=== PATIENT | male | born 1950 | race Caucasian/White ===

== ENCOUNTER → 2016-12-14 | Outpatient (CLI) | payer BC ==
[~2016-12-14] MED LIST: ALLEGRA-D 24HR1 T24 PO; APRESOLINE 25MG25 MG PO; ASPIRIN E.C. 8181 MG PO; FLOVENT 110MCG7.9 GM IH; LIPITOR 10MG10 MG PO; LIPITOR20 MG PO; MULTI VITAMINS1 TAB PO; NASONEX SPRAY17 GM NS; NITROSTAT0.4 MG/TAB SL; PREDNISONE10 MG PO; PREDNISONE20 MG PO; PROAIR HFA0.09 MG/AC IH; THE MEDICINE S300 M1 PO
== END ==
LOC: COL.PUL 09:41
DX: J45.909 Unspecified asthma, uncomplicated (principal)
CPT/HCPCS: J7674

== ENCOUNTER 2018-05-06 13:26 | Outpatient (CLI) | payer BC ==
[~2018-05-06] VITALS: Ht 188 cm; Wt 112.8 kg
[2018-05-06 13:57] VITALS: BP 152/61; PULSE 71; TEMP 97.6
[2018-05-06] MEDS ORDERED: NUCALA100 MG SQ (14:07)
== END 2018-05-06 15:28 | disposition home or self-care (01) ==
LOC: EUO 13:26
DX: Z79.899 Other long term (current) drug therapy (principal)

== ENCOUNTER 2018-06-07 11:12 | Outpatient (CLI) | payer BC ==
[~2018-06-07] VITALS: Ht 188 cm; Wt 111.3 kg
[~2018-06-07 11:12] MED LIST changes: +NATURAL FISH1000 MG PO; +NUCALA100 MG SQ; -THE MEDICINE S300 M1 PO
[2018-06-07] MEDS ORDERED: ALLEGRA-D 24HR1 T24 PO (11:32)
[2018-06-07] MEDS ORDERED: SINGULAIR 110 MG/TAB PO (11:36)
[2018-06-07 11:37] VITALS: BP 132/69; PULSE 61; TEMP 98.1
[2018-06-07] MEDS ORDERED: SPIRIVA RE2.5 MCG/Ac IH (11:37)
[2018-06-07] MEDS ORDERED: 00186-0370-20 IH (11:37)
== END 2018-06-07 12:17 | disposition home or self-care (01) ==
LOC: EUO 11:12
DX: Z79.899 Other long term (current) drug therapy (principal)

== ENCOUNTER 2018-07-08 12:37 | Outpatient (CLI) | payer BC ==
[~2018-07-08] VITALS: Ht 188 cm; Wt 112.0 kg
[~2018-07-08 12:37] MED LIST changes: +00186-0370-20 IH; +SINGULAIR 110 MG/TAB PO; +SPIRIVA RE2.5 MCG/Ac IH
[2018-07-08 13:48] VITALS: BP 127/62; PULSE 73; TEMP 98.1
== END 2018-07-08 13:48 | disposition home or self-care (01) ==
LOC: EUO 12:37
DX: Z79.899 Other long term (current) drug therapy (principal)

== ENCOUNTER 2018-08-05 12:53 | Outpatient (CLI) | payer BC ==
[~2018-08-05] VITALS: Ht 188 cm; Wt 112.8 kg
[2018-08-05 13:43] VITALS: BP 135/65; PULSE 70; TEMP 98.5
== END 2018-08-05 13:44 | disposition home or self-care (01) ==
LOC: EUO 12:53
DX: Z79.899 Other long term (current) drug therapy (principal)

== ENCOUNTER 2018-09-02 10:37 | Outpatient (CLI) | payer BC ==
[~2018-09-02] VITALS: Ht 188 cm; Wt 112.0 kg
[2018-09-02 11:01] VITALS: BP 141/73; PULSE 57; TEMP 97.5
== END 2018-09-02 11:14 | disposition home or self-care (01) ==
LOC: EUO 10:37
DX: Z79.899 Other long term (current) drug therapy (principal)

== ENCOUNTER 2018-09-30 10:59 | Outpatient (CLI) | payer BC ==
[~2018-09-30] VITALS: Ht 188 cm; Wt 111.1 kg
[2018-09-30 12:01] VITALS: BP 127/70; PULSE 51; TEMP 97.6
== END 2018-09-30 12:07 | disposition home or self-care (01) ==
LOC: EUO 10:59
DX: Z79.899 Other long term (current) drug therapy (principal)

== ENCOUNTER 2018-10-31 11:33 | Outpatient (CLI) | payer BC ==
[~2018-10-31] VITALS: Ht 188 cm; Wt 108.0 kg
[2018-10-31 11:48] VITALS: BP 136/67; PULSE 58; TEMP 98.2
== END 2018-10-31 13:11 | disposition home or self-care (01) ==
LOC: EUO 11:33
DX: Z79.899 Other long term (current) drug therapy (principal)

== ENCOUNTER 2018-12-13 16:00 | Outpatient (RCR) | payer BC ==
[2018-11-28 11:15] VITALS: BP 139/64; PULSE 98; TEMP 98.3
--- NOTE | 2018-11-28 11:36 | NUR ---
Medication unavailable and not delivered by [facility]. Pharmacy contacted who confirms shipment was not sent. Call back number provided for shipping department for notification of new arrival date. Patient departs at this time and is agreeable to reschedule via phone with [facility] staff.
[~2018-12-13] VITALS: Ht 188 cm; Wt 109.9 kg
[2018-12-13 16:49] VITALS: BP 127/66; PULSE 55; TEMP 98.1
== END 2018-12-13 16:57 | disposition home or self-care (01) ==
LOC: EUO 16:00
DX: J45.40 Moderate persistent asthma, uncomplicated (principal); J30.9 Allergic rhinitis, unspecified; K21.9 Gastro-esophageal reflux disease without esophagitis; Z79.899 Other long term (current) drug therapy

== ENCOUNTER 2019-01-22 09:01 | Outpatient (CLI) | payer BC ==
[~2019-01-22] VITALS: Ht 188 cm; Wt 110.0 kg
[2019-01-22 09:20] VITALS: BP 140/64; PULSE 55; TEMP 98.2
== END 2019-01-22 14:00 ==
LOC: EUO 09:01
DX: J45.40 Moderate persistent asthma, uncomplicated (principal); Z79.899 Other long term (current) drug therapy

== ENCOUNTER 2019-02-19 11:02 | Outpatient (CLI) | payer BC ==
[~2019-02-19] VITALS: Ht 188 cm; Wt 109.0 kg
[2019-02-19 11:23] VITALS: BP 125/63; PULSE 54; TEMP 97.9
== END 2019-02-19 12:06 | disposition home or self-care (01) ==
LOC: EUO 11:02
DX: J45.40 Moderate persistent asthma, uncomplicated (principal); Z79.899 Other long term (current) drug therapy

== ENCOUNTER 2019-03-19 11:01 | Outpatient (CLI) | payer BC ==
[~2019-03-19] VITALS: Ht 188 cm; Wt 109.0 kg
[2019-03-19 11:25] VITALS: BP 133/65; PULSE 53; TEMP 98.1
== END 2019-03-19 13:53 | disposition home or self-care (01) ==
LOC: EUO 11:01
DX: J45.40 Moderate persistent asthma, uncomplicated (principal); Z79.899 Other long term (current) drug therapy

== ENCOUNTER 2019-04-16 10:55 | Outpatient (CLI) | payer BC ==
[~2019-04-16] VITALS: Ht 188 cm; Wt 111.8 kg
[2019-04-16 11:25] VITALS: BP 157/74; PULSE 63; TEMP 98
== END 2019-04-16 11:32 | disposition home or self-care (01) ==
LOC: EUO 10:55
DX: J45.40 Moderate persistent asthma, uncomplicated (principal)

== ENCOUNTER 2021-03-31 21:00 | Emergency (ER) | payer BC ==
[~2021-03-31] VITALS: Ht 182.9 cm; Wt 104.5 kg
[2021-03-31 22:49] LABS: BASO # 0.1 (0.0-0.2); BASO % 0.5 % (0.0-2.0); EOS % 0.2 % (0-4.0); GRAN # 12.4 (1.4-6.5); HEMATOCRIT 38.5 % (42.0-52.0); HEMOGLOBIN 12.9 g/dl (13.5-18.0); LYMPH # 1.2 (1.2-3.4); LYMPH % 8.1 % (20.0-51.0); MEAN CELL VOLUME 93 fl (80.0-100.0); MEAN CORPUSCULAR HEMOGLOBIN 31 pg (27.0-31.0); MEAN CORPUSCULAR HGB CONC 34 g/dl (33.0-37.0); MEAN PLATELET VOLUME 9.8 fl (7.4-10.4); MONO # 1.2 (0.1-0.6); MONO % 7.7 % (1.7-9.3); PLATELET COUNT 261 K/mm3 (130-400); RED BLOOD COUNT 4.15 M/mm3 (4.20-5.60); REDCELL DISTRIBUTION WIDTH-CV 12.7 % (11.5-14.5)
[2021-03-31 22:57] LABS: INR 1.2 (0.8-3.0); PROTHROMBIN TIME 13.1 SECONDS (9.7-12.8)
[2021-03-31 23:00] LABS: PARTIAL THROMBOPLASTIN TIME 31.1 SECONDS (26.0-37.0)
[2021-03-31 23:06] LABS: BILIRUBIN,TOTAL 0.4 mg/dL (0.2-1.2); CALCIUM 9.6 mg/dL (8.4-10.2); CREATININE, serum 1.72 mg/dL (0.72-1.25); POTASSIUM 4.4 mmol/L (3.5-4.5); TOTAL PROTEIN 7.1 gm/dL (6.2-8.1)
[2021-03-31] MEDS ORDERED: ELIQUIS 5MG PO (23:48)
[2021-04-01 00:26] VITALS: BP 148/65; PULSE 91; TEMP 98.8
== END 2021-04-01 00:26 | disposition home or self-care (01) ==
LOC: COL.ER 21:00
PROVIDERS: Student in an Organized Health Care Education/Training Program
DX: I82.442 Acute embolism and thrombosis of left tibial vein (principal); I10 Essential (primary) hypertension; R06.02 Shortness of breath; R06.2 Wheezing; Z79.899 Other long term (current) drug therapy

== ENCOUNTER → 2022-08-07 | Outpatient (CLI) | payer BC ==
[~2022-08-07] MED LIST changes: +ELIQUIS 5MG PO
== END ==
LOC: COL.RAD 10:17
DX: M25.552 Pain in left hip (principal)
CPT/HCPCS: J3301; Q9967